=== PATIENT | female | born 1955 | race Hispanic/Latino ===

== ENCOUNTER 2019-01-08 06:57 | Day surgery (SDC) | payer BC ==
[2019-01-07 11:10] VITALS: BP 140/71
[2019-01-07 11:15] LABS: BASOPHILS % (AUTO) 0.5 % (0.0-5.0); EOSINOPHILS % (AUTO) 1.7 % (0.0-8.0); HEMATOCRIT 38.5 % (36-48); LYMPHOCYTES % (AUTO) 20.3 % (21.0-51.0); MEAN CORPUSCULAR HEMOGLOBIN 26.6 pg (27.0-33.0); MEAN CORPUSCULAR HGB CONC 32.7 g/dL (32.0-36.0); MEAN CORPUSCULAR VOLUME 81.4 fL (79-99); MONOCYTES % (AUTO) 4.1 % (3.0-13.0); NEUTROPHILS % (AUTO) 73.4 % (40.0-77.0); NUCLEATED RED BLOOD CELLS 0.1 % (0.0-0.19); PLATELET COUNT (AUTO) 248 K/uL (130-400); RED BLOOD CELL COUNT(AUTO) 4.73 MIL/uL (4.00-5.50); RED CELL DISTRIBUTION WIDTH 14.5 % (11.0-15.5); WHITE BLOOD COUNT (AUTO) 9.6 K/uL (4.8-10.8)
[~2019-01-08] VITALS: Ht 157.5 cm; Wt 130.7 kg
[2019-01-08] VITALS (19 sets, daily range): BP systolic 103–137; BP diastolic 39–79
[~2019-01-08 06:57] MED LIST: ALPR1TAB7 PO; AZIL1TAB2 PO; CARV25TA PO; LACTATED RINGERS 1000ML 1,000 ML IV SCH; LORA10TA7 PO; MELO-108 PO; TIZA4CAP8 PO; TRAM50TA4 PO
[2019-01-08] MEDS: CALDOLOR 800MG+NS 250ML 250 ML IV SCH ×2 (07:00→08:40)
[2019-01-08] MEDS: CEFAZOLIN SODIUM 1 GM VIAL ONE ×2 (07:49→08:30)
[2019-01-08] MEDS ORDERED: CEFAZOLIN 3GM /D5W 100ML 100 ML IV PRN (08:00)
[2019-01-08] MEDS ORDERED: MIDAZOLAM HCL 1 MG/ML 2ML VIAL ONE (08:18)
[2019-01-08] MEDS ORDERED: PROPOFOL 10 MG/ML 20ML VIAL IV ONE (08:25)
[2019-01-08] MEDS ORDERED: ROCURONIUM 10MG/1ML SYR 10 MG/ML ML ONE (08:26)
[2019-01-08] MEDS ORDERED: FENTANYL CITRATE PF 50 MCG/1 ML 2ML VIAL ONE (08:40)
[2019-01-08] MEDS ORDERED: SODIUM CHLORIDE 0.9% 10 ML VIAL ONE (09:02)
[2019-01-08] MEDS ORDERED: ONDANSETRON HCL 4 MG/2 ML VIAL ONE (09:02)
== END 2019-01-08 11:40 ==
LOC: DAH 06:57
PROVIDERS: ATTEND Obstetrics & Gynecology
DX: N84.0 Polyp of corpus uteri (principal); N92.4 Excessive bleeding in the premenopausal period; E66.01 Morbid (severe) obesity due to excess calories; G89.29 Other chronic pain; M54.9 Dorsalgia, unspecified; M54.2 Cervicalgia; K21.9 Gastro-esophageal reflux disease without esophagitis; I10 Essential (primary) hypertension
CPT/HCPCS: 36415; 58558; 85025; 86850; 86900; 86901; 88305; A4351; J0690; J1741; J2250; J2405; J2704; J7030; J7120; J3010